=== PATIENT | male | born 1940 | race Caucasian/White ===

== ENCOUNTER 2016-09-28 00:09 | Inpatient (IN) | payer MEDICARE ==
[~2016-09-28] VITALS: Ht 180.3 cm; Wt 97.6 kg
[2016-09-28] VITALS (12 sets, daily range): BP systolic 95–130; BP diastolic 51–76; PULSE 64–87; TEMP 97.4–98.5
[2016-09-28] MEDS ORDERED: CELEXA 20MG20 MG/TAB PO (00:21)
[2016-09-28] MEDS ORDERED: MOBIC15 MG PO (00:21)
[2016-09-28] MEDS ORDERED: ASPIRIN 81M81 MG/TA2 PO (00:21)
[2016-09-28] MEDS ORDERED: PRAVACHOL 20MG20 MG PO (00:22)
[2016-09-28] MEDS ORDERED: COZAAR 25MG25 MG/TAB PO (00:22)
[2016-09-28] MEDS ORDERED: XYZAL5 MG PO (00:23)
[2016-09-28] MEDS ORDERED: COSOPT 2%-0.5%10 ML OU (00:23)
[2016-09-28 00:43] LABS: BASO # 0.1 (0.0-0.2); BASO % 0.4 % (0.0-2.0); EOS # 0.2 (0.0-0.7); EOS % 1.7 % (0-4.0); GRAN # 9.5 (1.4-6.5); GRAN % 74.8 % (42.2-75.2); HEMATOCRIT 41.8 % (42.0-52.0); HEMOGLOBIN 13.9 g/dl (13.5-18.0); LYMPH % 15.4 % (20.0-51.0); MEAN CELL VOLUME 92 fl (80.0-100.0); MEAN CORPUSCULAR HEMOGLOBIN 31 pg (27.0-31.0); MEAN CORPUSCULAR HGB CONC 33 g/dl (33.0-37.0); MEAN PLATELET VOLUME 10.1 fl (7.4-10.4); MONO # 0.9 (0.1-0.6); MONO % 7.3 % (1.7-9.3); PLATELET COUNT 138 K/mm3 (130-400); RED BLOOD COUNT 4.56 M/mm3 (4.20-5.60); REDCELL DISTRIBUTION WIDTH-CV 13.2 % (11.5-14.5); WHITE BLOOD COUNT 12.7 K/mm3 (4.8-10.8)
[2016-09-28 00:53] LABS: INR 1.3 (0.8-3.0); PROTHROMBIN TIME 14.7 SECONDS (9.7-12.8)
[2016-09-28 00:58] LABS: ADJUSTED CALCIUM 8.9 mg/dL (8.4-10.2); ALBUMIN 3.3 gm/dL (3.5-5.0); BILIRUBIN,TOTAL 1.6 mg/dL (0.0-1.0); CALCIUM 8.3 mg/dL (8.4-10.2); CREATININE, serum 0.88 mg/dL (0.66-1.25); POTASSIUM 4.1 mmol/L (3.4-5.0)
[2016-09-28 08:07] LABS: PH 5 (5-8); SQUAMOUS EPITHELIAL None Seen /hpf; URINE APPEARANCE Clear; URINE BACTERIA None Seen /hpf; URINE BILIRUBIN Negative (NEGATIVE); URINE BLOOD 3+ (NEGATIVE); URINE COLOR Amber; URINE GLUCOSE Negative (NEGATIVE); URINE KETONE 1+ (NEGATIVE); URINE RBC 20-50 /hpf
[2016-09-28 08:09] LABS: URINE WBC 20-50 /hpf
[2016-09-28 10:12] LABS: CREATINE KINASE 80 U/L (55-170)
[2016-09-28 10:27] LABS: TROPONIN-I < 0.012 ng/mL (0.000-0.034)
[2016-09-29] VITALS (16 sets, daily range): BP systolic 88–112; BP diastolic 51–83; PULSE 62–141; TEMP 97.8–99.1; O2SAT 90–98
[2016-09-29 08:17] LABS: HEMATOCRIT 34.5 % (42.0-52.0)
[2016-09-29 10:05] LABS: BASO # 0.1 (0.0-0.2); BASO % 0.6 % (0.0-2.0); EOS # 0.5 (0.0-0.7); EOS % 5.3 % (0-4.0); GRAN # 6.6 (1.4-6.5); GRAN % 68.4 % (42.2-75.2); LYMPH # 1.9 (1.2-3.4); LYMPH % 19.2 % (20.0-51.0); MEAN CELL VOLUME 95 fl (80.0-100.0); MEAN CORPUSCULAR HGB CONC 32 g/dl (33.0-37.0); MEAN PLATELET VOLUME 11.9 fl (7.4-10.4); MONO # 0.6 (0.1-0.6); MONO % 6.3 % (1.7-9.3); PLATELET COUNT 128 K/mm3 (130-400); RED BLOOD COUNT 3.64 M/mm3 (4.20-5.60); REDCELL DISTRIBUTION WIDTH-CV 13.3 % (11.5-14.5); WHITE BLOOD COUNT 9.6 K/mm3 (4.8-10.8)
[2016-09-29 10:06] LABS: HEMATOCRIT 34.5 % (42.0-52.0); HEMOGLOBIN 11.1 g/dl (13.5-18.0); MEAN CORPUSCULAR HEMOGLOBIN 30 pg (27.0-31.0)
[2016-09-29 10:12] LABS: CREATININE, serum 1.5 mg/dL (0.66-1.25); POTASSIUM 4.3 mmol/L (3.4-5.0)
[2016-09-29 12:07] LABS: INR 1.2 (0.8-3.0); PROTHROMBIN TIME 13.3 SECONDS (9.7-12.8)
[2016-09-29 12:09] LABS: PARTIAL THROMBOPLASTIN TIME 28.1 SECONDS (26.0-37.0)
[2016-09-30] VITALS (22 sets, daily range): BP systolic 117–150; BP diastolic 61–84; PULSE 61–95; TEMP 98.1–99.5; O2SAT 84–98
[2016-09-30 03:41] LABS: HEMATOCRIT 25.1 % (42.0-52.0); HEMOGLOBIN 8.4 g/dl (13.5-18.0)
[2016-10-01 01:34] VITALS: BP 114/56; PULSE 57; TEMP 97.5
[2016-10-01 05:07] VITALS: BP 120/55; PULSE 56; TEMP 98
[2016-10-01 06:45] LABS: BASO % 0.4 % (0.0-2.0); EOS # 0.5 (0.0-0.7); EOS % 7.7 % (0-4.0); GRAN # 3.3 (1.4-6.5); GRAN % 49.4 % (42.2-75.2); LYMPH # 2.2 (1.2-3.4); LYMPH % 32.9 % (20.0-51.0); MEAN CELL VOLUME 93 fl (80.0-100.0); MEAN CORPUSCULAR HGB CONC 33 g/dl (33.0-37.0); MEAN PLATELET VOLUME 11.1 fl (7.4-10.4); MONO # 0.6 (0.1-0.6); MONO % 8.9 % (1.7-9.3); PLATELET COUNT 121 K/mm3 (130-400); RED BLOOD COUNT 2.56 M/mm3 (4.20-5.60); REDCELL DISTRIBUTION WIDTH-CV 13.2 % (11.5-14.5); WHITE BLOOD COUNT 6.7 K/mm3 (4.8-10.8)
[2016-10-01 06:54] LABS: CALCIUM 7.7 mg/dL (8.4-10.2); CREATININE, serum 0.74 mg/dL (0.66-1.25); POTASSIUM 3.1 mmol/L (3.4-5.0)
[2016-10-01 07:05] LABS: HEMATOCRIT 23.7 % (42.0-52.0); HEMOGLOBIN 7.7 g/dl (13.5-18.0); MEAN CORPUSCULAR HEMOGLOBIN 30 pg (27.0-31.0)
[2016-10-01 10:23] VITALS: BP 160/57; PULSE 65; TEMP 98.6
[2016-10-01 14:07] VITALS: BP 119/58; PULSE 59; TEMP 97
[2016-10-01 17:41] VITALS: BP 115/50; PULSE 56; TEMP 98.9
[2016-10-01 21:04] VITALS: BP 116/60; PULSE 57; TEMP 98
[2016-10-02 01:33] VITALS: BP 135/54; PULSE 56; TEMP 97.6
[2016-10-02 05:25] VITALS: BP 127/57; PULSE 58; TEMP 97.5
[2016-10-02 07:36] LABS: BASO % 0.5 % (0.0-2.0); EOS # 0.6 (0.0-0.7); EOS % 8.3 % (0-4.0); GRAN # 3.4 (1.4-6.5); GRAN % 45.2 % (42.2-75.2); LYMPH # 2.8 (1.2-3.4); LYMPH % 36.9 % (20.0-51.0); MEAN CELL VOLUME 94 fl (80.0-100.0); MEAN CORPUSCULAR HGB CONC 33 g/dl (33.0-37.0); MEAN PLATELET VOLUME 11.3 fl (7.4-10.4); MONO # 0.6 (0.1-0.6); MONO % 8.1 % (1.7-9.3); PLATELET COUNT 154 K/mm3 (130-400); REDCELL DISTRIBUTION WIDTH-CV 13.4 % (11.5-14.5); WHITE BLOOD COUNT 7.6 K/mm3 (4.8-10.8)
[2016-10-02 07:37] LABS: CREATININE, serum 0.7 mg/dL (0.66-1.25)
[2016-10-02 07:40] LABS: HEMATOCRIT 24.3 % (42.0-52.0); HEMOGLOBIN 7.9 g/dl (13.5-18.0); MEAN CORPUSCULAR HEMOGLOBIN 30 pg (27.0-31.0)
[2016-10-02] MEDS ORDERED: FERROUS SU325 MG/TAB PO (08:14)
[2016-10-02] MEDS ORDERED: ELIQUIS 5MG PO (08:15)
[2016-10-02] MEDS ORDERED: CORDARONE200 MG/TAB PO (08:15)
[2016-10-02] MEDS ORDERED: OYSCO 500500 M1 PO (08:18)
[2016-10-02] MEDS ORDERED: NORCO 325 MG-51 TAB PO (08:18)
[2016-10-02] MEDS ORDERED: DUO-KAPS1 CAP PO (08:19)
[2016-10-02] MEDS ORDERED: VITAMINC500CH PO (08:19)
[2016-10-02 09:43] VITALS: BP 133/62; PULSE 55; TEMP 98
[2016-10-02 13:15] VITALS: BP 133/62; PULSE 55; TEMP 98
[2016-10-02 13:55] VITALS: BP 139/66; PULSE 62
== END 2016-10-02 16:04 | DRG 481 ==
LOC: COL.ER 00:09 → SURG 01:27 → ICU 09-29 10:02 → SURG 09-30 12:50
PROVIDERS: Emergency Medicine; Family Medicine; Nurse Practitioner Family; Orthopaedic Surgery
PROC: 0QSC06Z Reposition Left Lower Femur with Intramedullary Internal Fixation Device, Open Approach (ICD-10-PCS; principal; 2016-09-28 18:35)
DX: S72.302A Unspecified fracture of shaft of left femur, initial encounter for closed fracture (principal); I69.354 Hemiplegia and hemiparesis following cerebral infarction affecting left non-dominant side; D62 Acute posthemorrhagic anemia; W18.30XA Fall on same level, unspecified, initial encounter; I10 Essential (primary) hypertension; F17.220 Nicotine dependence, chewing tobacco, uncomplicated; I48.91 Unspecified atrial fibrillation; E87.6 Hypokalemia
CPT/HCPCS: 99222-AI; 99232-AI; 99233-AI; 99239; A4315; A9284; C1713; J0282; J0690; J1644; J1650; J2250; J2270; J2370; J2405; J2704; J3010; J7030; J7040; J7060; P9047